=== PATIENT | female | born 1985 | race Caucasian/White ===

== ENCOUNTER 2016-11-14 07:09 | Emergency (ER) | payer OTHER ==
[~2016-11-14] VITALS: Ht 167.6 cm; Wt 81.7 kg
[2016-11-14 07:13] VITALS: BP 130/87; PULSE 89; TEMP 36.9; O2SAT 97; Ht 167.6 cm; Wt 81.7 kg
[2016-11-14] MEDS ORDERED: AMOX875T PO (07:32)
--- NOTE | 2016-11-14 07:34 | EMERGENCY ROOM VISIT NOTE ---
ED Visit Note First contact with patient: 07:17 CHIEF COMPLAINT: Earache HISTORY OF PRESENT ILLNESS: This 31-year-old female presents to the emergency department and states they have had an earache since yesterday. The patient has not had a sore throat or recent URI. There is no cough and no hoarseness. They rate the pain as sharp and 2/10. The pain is in the right ear. They have had nothing for the pain. The patient reports remote history of ear infections. She reports sinus congestion and relates it is due to her allergies. She has not had any fever, cough, trouble breathing, abdominal pain , nausea vomiting. The patient states that she noticed a painful, enlarged lymph node below the right ear. 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 REVIEW OF SYSTEMS: A 10 system review of systems was completed with positives and pertinent negatives listed in the HPI. ALLERGIES: Zofran MEDICATIONS: control pills PMH: Patient denies. Immunizations are up to date. SH: The patient is a nursing teacher. She does not smoke PHYSICAL EXAM: Vital Signs: Reviewed Nurse's notes, temperature 36.9C orally. GENERAL: This is a 31-year-old female, in no acute distress, well-developed, well-nourished. SKIN: Normal. HEART: Regular rate and rhythm without murmurs gallops or rubs. LUNGS: Clear to auscultation and breath sounds equal, no wheezes, rales, or rhonchi. MOUTH: The pharynx is not inflamed and the tonsils are not enlarged. The airway is patent. EARS: The right tympanic membrane is bulging with effusion. The right external auditory canal is clear with no tragus tenderness. The left tympanic membrane is pearly woods without erythema or effusion. The left external auditory canal is clear. There is no mastoid tenderness or swelling. LYMPH: There is right posterior cervical lymphadenopathy. ED COURSE: I examined the patient. She has an enlarged and painful lymph node in the posterior cervical chain. This is likely reactive. There is no mastoid tenderness, swelling or fever to suggest mastoiditis. She has no other symptoms. There is no swelling of the parotid gland. She will be placed on Augmentin BID x 10 days. The lymph node should be followed to resolution; she was advised of this. The patient was discharged home in stable condition. Current/Historical Medications Scheduled Amoxicillin & Pot Clavulanate (Augmentin 875-125 mg), 1 TAB PO BID Allergies Coded Allergies: Ondansetron (Verified Allergy, Unknown, hives, 11/14/16) Vital Signs Date Time Temp Pulse Resp B/P (MAP) Pulse Ox O2 Delivery O2 Flow Rate FiO2 11/14/16 07:13 36.9 89 18 130/87 97 Room Air Departure Information Impression Primary Impression: Otitis media with effusion Additional Impression: Lymphadenopathy Dispostion Home / Self-Care Condition GOOD Prescriptions Amoxicillin & Pot Clavulanate (Augmentin 875-125 mg) 1 Tab Tab 1 TAB PO BID for 10 Days, #20 TAB Prov: Laila Beckford PA-C 11/14/16 Referrals No Doctor, Assigned (PCP) Nilesh Bull MD Patient Instructions ED Otitis Media Acute Adult, [facility] Additional Instructions Augmentin every 12 hours for 10 days The lymph node should be rechecked if it does not resolve after treatment. Motrin 600mg every 6-8 hours for pain Try a decongestant such as Sudafed Return with fevers, worsening swelling, pain/swelling of the mastoid or generalized worsening symptoms Problem Qualifiers
== END 2016-11-14 07:42 | disposition home or self-care (01) ==
LOC: C.EDB 07:11 → C.EDA 07:42
DX: H65.91 Unspecified nonsuppurative otitis media, right ear (principal); R59.0 Localized enlarged lymph nodes; Z79.3 Long term (current) use of hormonal contraceptives